=== PATIENT | female | born 1940 | race Caucasian/White ===

== ENCOUNTER 2016-12-19 16:35 | Inpatient (IN) | payer MEDICARE, OTHER ==
[~2016-12-19] VITALS: Ht 149.9 cm; Wt 38.1 kg
[2016-12-19 17:08] LABS: BASOPHILS # (AUTO) 0.1 /CMM (0.0-0.2); BASOPHILS % (AUTO) 1.5 % (0.0-2.0); DIFF TOTAL % 100 %; EOSINOPHILS % (AUTO) 0.3 % (0.0-6.0); HEMATOCRIT 34 % (33-45); HEMOGLOBIN 11.7 g/dL (11.5-14.8); LYMPHOCYTES % (AUTO) 13.6 % (20.0-44.0); MEAN CORPUSCULAR HEMOGLOBIN 31 PG (26.0-33.0); MEAN CORPUSCULAR HGB CONC 34 g/dl (31.0-36.0); MEAN CORPUSCULAR VOLUME 89 fL (82-100); MONOCYTES # (AUTO) 0.3 /CMM (0.1-1.30); MONOCYTES % (AUTO) 4.2 % (2.0-12.0); NEUTROPHILS # (AUTO) 5.6 /CMM (1.8-8.9); NEUTROPHILS % (AUTO) 80.4 % (43.0-81.0); PLATELET COUNT (AUTO) 260 /CMM (150-450); RED BLOOD CELL COUNT(AUTO) 3.83 MIL/uL (4.0-5.2)
[2016-12-19 17:16] LABS: ANION GAP 13 (5-14); CARBON DIOXIDE 28 mmol/L (21-32); CHLORIDE 105 mmol/L (98-107); CREATININE 1.3 mg/dL (0.6-1.3); GLUCOSE 102 mg/dL (74-106); POTASSIUM 4.7 mmol/L (3.5-5.1); SODIUM SERUM 141 mmol/L (136-145); UREA NITROGEN, BLOOD 33 mg/dL (7-18)
[2016-12-19 17:24] LABS: TROPONIN I < 0.017 ng/mL (0.00-0.056)
[2016-12-19] MEDS ORDERED: SERT50TA PO (17:26)
[2016-12-19] MEDS ORDERED: PANT40TA4 PO (17:26)
[2016-12-19] MEDS ORDERED: ACET-868 PO (17:26)
[2016-12-19] MEDS ORDERED: CLON0.1T PO (17:26)
[2016-12-19] MEDS ORDERED: LORA0.5T PO (17:26)
[2016-12-19] MEDS ORDERED: CELE100C2 PO (17:26)
[2016-12-19] MEDS ORDERED: DOCU-270 PO (17:26)
[2016-12-19 17:40] LABS: KETONES,URINE Negative (NEGATIVE); LEUKOCYTE ESTERASE ,URINE Small (NEGATIVE)
[2016-12-19 17:41] LABS: ADD UA MICROSCOPIC YES
[2016-12-19 17:45] LABS: CANNABINOID, URINE NEGATIVE (NEGATIVE); PHENCYCLIDINE SCREEN,URINE NEGATIVE (NEGATIVE)
[2016-12-19 17:51] LABS: ADD URINE CULTURE YES; RBC,URINE 0-2 /HPF (0-2)
[2016-12-19] MEDS ORDERED: CLONIDINE HCL 0.1 MG TABLET PO PRN (19:30)
[2016-12-19] MEDS ORDERED: DOCUSATE SODIUM 100 MG CAPSULE PO PRN (19:30)
[2016-12-19] MEDS ORDERED: ACETAMINOPHEN 325 MG TABLET PO PRN (20:30)
[2016-12-19] MEDS ORDERED: TEMAZEPAM 7.5 MG CAPSULE PO PRN (20:30)
[2016-12-19] MEDS ORDERED: MAG HYDROX/AL HYDROX/SIMETH 30 ML UDC PO PRN (20:30)
[2016-12-19] MEDS ORDERED: MAGNESIUM HYDROXIDE 30 ML UDC PO PRN (20:30)
[2016-12-19] MEDS ORDERED: clonazePAM 0.5 MG TABLET PO PRN (20:30)
[2016-12-19 22:09] VITALS: BP 155/67
[2016-12-20 00:43] VITALS: BP 155/67
[2016-12-20 07:01] LABS: BASOPHILS % (AUTO) 0.5 % (0.0-2.0); DIFF TOTAL % 100 %; EOSINOPHILS # (AUTO) 0.1 /CMM (0.0-0.7); EOSINOPHILS % (AUTO) 2.4 % (0.0-6.0); HEMATOCRIT 33 % (33-45); HEMOGLOBIN 11.3 g/dL (11.5-14.8); LYMPHOCYTES # (AUTO) 1.2 /CMM (0.8-4.8); LYMPHOCYTES % (AUTO) 26.3 % (20.0-44.0); MEAN CORPUSCULAR HEMOGLOBIN 31 PG (26.0-33.0); MEAN CORPUSCULAR HGB CONC 35 g/dl (31.0-36.0); MEAN CORPUSCULAR VOLUME 90 fL (82-100); MONOCYTES # (AUTO) 0.2 /CMM (0.1-1.30); MONOCYTES % (AUTO) 5.5 % (2.0-12.0); NEUTROPHILS # (AUTO) 2.9 /CMM (1.8-8.9); NEUTROPHILS % (AUTO) 65.3 % (43.0-81.0); PLATELET COUNT (AUTO) 260 /CMM (150-450); RED BLOOD CELL COUNT(AUTO) 3.65 MIL/uL (4.0-5.2); WHITE BLOOD COUNT (AUTO) 4.5 K/uL (4.3-11.0)
[2016-12-20 07:24] LABS: ALBUMIN 3.7 g/dL (3.4-5.0); BILIRUBIN,TOTAL 0.4 mg/dL (0.2-1.0); CALCIUM, SERUM 8.8 mg/dL (8.5-10.1); CREATININE 1.1 mg/dL (0.6-1.3); POTASSIUM 4.6 mmol/L (3.5-5.1)
[2016-12-20] MEDS: PANTOPRAZOLE 40 MG TABLET.DR PO SCH (07:51)
[2016-12-20 08:00] VITALS: BP 121/62
[2016-12-20] MEDS: CELECOXIB 100 MG CAPSULE PO SCH ×2 (08:21→16:54)
[2016-12-20 16:00] VITALS: BP 133/55
[2016-12-20] MEDS: SERTRALINE HCL 50 MG TABLET PO SCH ×2 (16:54→17:00)
[2016-12-20] MEDS: QUETIAPINE FUMARATE 25 MG TABLET PO SCH ×2 (16:54→17:00)
[2016-12-20 20:00] VITALS: BP 127/53
[2016-12-21 08:00] VITALS: BP 124/47
[2016-12-21] MEDS: PANTOPRAZOLE 40 MG TABLET.DR PO SCH (08:22)
[2016-12-21] MEDS: SERTRALINE HCL 50 MG TABLET PO SCH (08:25)
[2016-12-21] MEDS: CELECOXIB 100 MG CAPSULE PO SCH ×2 (08:25→16:35)
[2016-12-21] MEDS: QUETIAPINE FUMARATE 25 MG TABLET PO SCH ×2 (08:25→16:35)
[2016-12-21 16:00] VITALS: BP 110/47
[2016-12-21 20:00] VITALS: BP 133/63
[2016-12-22] MEDS: PANTOPRAZOLE 40 MG TABLET.DR PO SCH (07:30)
[2016-12-22 08:09] VITALS: BP 120/67
[2016-12-22] MEDS: CELECOXIB 100 MG CAPSULE PO SCH ×2 (08:23→16:38)
[2016-12-22] MEDS: SERTRALINE HCL 50 MG TABLET PO SCH (08:25)
[2016-12-22] MEDS: QUETIAPINE FUMARATE 25 MG TABLET PO SCH ×2 (08:25→16:39)
[2016-12-22 15:58] VITALS: BP 105/60
[2016-12-22 19:49] VITALS: BP 150/58
[2016-12-23] MEDS: PANTOPRAZOLE 40 MG TABLET.DR PO SCH (07:30)
[2016-12-23 08:00] VITALS: BP 115/55
[2016-12-23] MEDS: CELECOXIB 100 MG CAPSULE PO SCH ×2 (09:00→17:00)
[2016-12-23] MEDS: SERTRALINE HCL 50 MG TABLET PO SCH (09:00)
[2016-12-23] MEDS: QUETIAPINE FUMARATE 25 MG TABLET PO SCH ×2 (09:00→17:00)
[2016-12-23 16:00] VITALS: BP 108/60
[2016-12-23 19:48] VITALS: BP 112/72
[2016-12-24] MEDS: PANTOPRAZOLE 40 MG TABLET.DR PO SCH (07:30)
[2016-12-24 08:00] VITALS: BP 149/60
[2016-12-24] MEDS: CELECOXIB 100 MG CAPSULE PO SCH ×2 (08:21→16:16)
[2016-12-24] MEDS: SERTRALINE HCL 50 MG TABLET PO SCH (08:22)
[2016-12-24] MEDS: QUETIAPINE FUMARATE 25 MG TABLET PO SCH ×2 (08:23→16:16)
[2016-12-24 16:00] VITALS: BP 124/62
[2016-12-24 20:10] VITALS: BP 139/60
[2016-12-25] MEDS: PANTOPRAZOLE 40 MG TABLET.DR PO SCH (07:30)
[2016-12-25] MEDS: CELECOXIB 100 MG CAPSULE PO SCH ×2 (08:53→17:21)
[2016-12-25] MEDS: QUETIAPINE FUMARATE 25 MG TABLET PO SCH ×2 (08:53→17:00)
[2016-12-25] MEDS: SERTRALINE HCL 50 MG TABLET PO SCH (08:53)
[2016-12-25 09:14] VITALS: BP 127/60
[2016-12-25 15:43] VITALS: BP 119/69
[2016-12-25 20:00] VITALS: BP 110/53
[2016-12-26] MEDS: PANTOPRAZOLE 40 MG TABLET.DR PO SCH (07:30)
[2016-12-26 08:00] VITALS: BP 129/63
[2016-12-26] MEDS: CELECOXIB 100 MG CAPSULE PO SCH ×2 (08:28→16:40)
[2016-12-26] MEDS: QUETIAPINE FUMARATE 25 MG TABLET PO SCH ×2 (08:30→16:40)
[2016-12-26] MEDS: SERTRALINE HCL 50 MG TABLET PO SCH (08:30)
[2016-12-26 16:08] VITALS: BP 144/53
[2016-12-26 20:00] VITALS: BP 126/46
[2016-12-27 08:00] VITALS: BP 146/51
[2016-12-27] MEDS: SERTRALINE HCL 50 MG TABLET PO SCH (08:52)
[2016-12-27] MEDS: QUETIAPINE FUMARATE 25 MG TABLET PO SCH (08:52)
[2016-12-27] MEDS: PANTOPRAZOLE 40 MG TABLET.DR PO SCH (08:53)
[2016-12-27] MEDS: CELECOXIB 100 MG CAPSULE PO SCH (08:53)
== END 2016-12-27 14:10 | disposition home or self-care (01) | DRG 885 ==
LOC: ER 16:42 → GPS 17:39
PROVIDERS: ADMIT Psychiatry & Neurology Psychiatry; ATTEND Internal Medicine
DX: F33.3 Major depressive disorder, recurrent, severe with psychotic symptoms (principal); F02.80 Dementia in other diseases classified elsewhere, unspecified severity, without behavioral disturbance, psychotic disturbance, mood disturbance, and anxiety; E43 Unspecified severe protein-calorie malnutrition; Z68.1 Body mass index [BMI] 19.9 or less, adult; E78.5 Hyperlipidemia, unspecified; G30.9 Alzheimer's disease, unspecified; F41.9 Anxiety disorder, unspecified; I10 Essential (primary) hypertension; I25.10 Atherosclerotic heart disease of native coronary artery without angina pectoris; K21.9 Gastro-esophageal reflux disease without esophagitis; M19.90 Unspecified osteoarthritis, unspecified site; R62.7 Adult failure to thrive; R82.99 Other abnormal findings in urine
CPT/HCPCS: 36415; 80048-TC; 80053-TC; 80061-TC; 80305; 81000-TC; 84484-TC; 85025-TC; 87081-TC; 87086-TC; A4606; G0480; Z7610